=== PATIENT | female | born 1955 | race African-American/Black ===

== ENCOUNTER 2018-04-25 07:40 | Day surgery (SDC) | payer OTHER ==
--- OUTSIDE RECORDS SUMMARY | 2018-04-25 07:43 | XMS REPORT ---
:1955 [facility] Address [address] [place] [address] [address] Care Team Providers Name Role Phone HARISH MARCOS JR Primary Care Provider Unavailable Problems This patient has no known problems. Allergies, Adverse Reactions, Alerts This patient has no known allergies or adverse reactions. Medications This patient has no known medications. Encounters Start End Encounter Admission Attending Care Care Encounter Date/Time Date/Time Type Type Clinicians Facility Department ID 2018-01-17 2018-01-17 Outpatient [facility] [id number] 13:19:00 13:19:00 2017-10-18 2017-10-18 Outpatient [facility] [id number] 16:05:00 16:05:00
[2018-04-25] MEDS ORDERED: EPINEPHRINE/PF 1 MG/ML AMP ONE ×2 (07:54→09:08)
[2018-04-25] MEDS ORDERED: BALANCED SALT IRRIG PLAIN 500 ML BTL IRR ONE (07:54)
[2018-04-25] MEDS ORDERED: NS 0.9% VIAL 10 ML ONE (07:54)
[2018-04-25] MEDS ORDERED: MOXIFLOXACIN HCL 10 DROPS/ML **OR USE OPTH ONE (07:55)
[2018-04-25] MEDS ORDERED: CYCLOPENTOLATE 1% OPTH 2 ML ONE (07:55)
[2018-04-25] MEDS ORDERED: DUOVISC 1 KIT OPTH ONE (07:55)
[2018-04-25] MEDS ORDERED: LIDOCAINE 2% MPF 5 ML VIAL ONE ×2 (07:55→08:46)
[2018-04-25] MEDS ORDERED: TETRACAINE HCL 0.5% 2ML OPTH ONE (07:55)
[2018-04-25] MEDS ORDERED: NA CHLORIDE 0.9% 500 ML ONE (07:56)
[2018-04-25] MEDS ORDERED: PHENYLEPHRINE 10% OPTH 5ML ONE (07:56)
[2018-04-25] MEDS ORDERED: BUPIVACAINE 0.25% PF 30 ML VIAL ONE (07:59)
[2018-04-25] MEDS ORDERED: CYCLOPENTOLATE 1% OPTH 2 ML OPTH ONE ×2 (08:10→08:15)
[2018-04-25] MEDS ORDERED: PHENYLEPHRINE 10% OPTH 5ML OPTH ONE ×2 (08:10→08:15)
[2018-04-25] MEDS ORDERED: PROPOFOL 200 MG/20 ML VIAL IV ONE (08:46)
--- NOTE | 2018-04-25 09:54 | P.BOP ---
Preoperative diagnosis: Nuclear sclerotic, cortical and posterior subcapsular cataract OD Postoperative diagnosis: Same Primary procedure: Phacoemulsification with IOL OD Estimated blood loss: None Anesthesia: Local (Subtenon's infusion with anesthesia for cataract surgery) Complications: None Implants: SN60WF +20.5 Transferred to: Other (Day surgery) Condition: Good
--- NOTE | 2018-04-25 20:51 | OP ---
Date of Procedure: 04/25/2018 Surgeon: Sujey Soriano MD Anesthesiologist: Jose Elias Hart CRNA. Preoperative Diagnosis: Nuclear sclerotic cortical and posterior subcapsular cataract, right eye. Operation Performed: Phacoemulsification with intraocular lens implant, right eye. Anesthesia: Per cataract surgery. Complications: None. Description Of Procedure: In day surgery, the patient was prepped with Betadine and draped. A conjunctival incision was made in the inferior nasal quadrant with Kathy scissors. A sub-Tenon block consisting of a 1:1 mixture of 2% Xylocaine and 0.25% bupivacaine was placed through the conjunctival incision with a blunt cannula. A Honan balloon was placed over the eye and the patient was transferred to the operating room. In the operating room the patient was prepped and draped in the usual sterile fashion for ophthalmic surgery. A lid speculum was placed in the right eye. Two paracentesis sites were made superiorly and inferiorly in the limbal cornea. Viscoat was placed in the anterior chamber and a crescent blade was used to make a corneal groove and tunnel, and a keratome was used to enter the anterior chamber. Provisc was placed in the anterior chamber and a 360 degree capsulotomy was performed with a cystitome. The lens was hydrodissected with BSS and rotated freely. The lens was removed with a stop and chop technique. 7.25 phaco CDE was used to remove the lens. Residual cortex was removed with the irrigation and aspiration. Provisc was placed in the capsular bag. A SN60WF +20.5 diopter lens was placed in the capsular bag without complications. Irrigation and aspiration was used to remove residual viscoelastic. The paracentesis sites were hydrated with BSS. The wound and paracentesis sites were inspected and found to be watertight. Vigamox 0.07 cc was placed intracamerally at the end of the procedure. The eye was irrigated with balanced salt solution. The eye was patched with a soft cotton patch and Torres metal shield. The patient was returned to day surgery in good condition. Comments: A 1:5000 epinephrine was placed in the anterior chamber prior to Viscoat. Discharge Instructions: Ms. Kemp is discharged to home in good condition and is to follow up with Dr. Soriano in the morning. UMANG/ANH Voice ID: [id number] Report ID: [id number] MTDD
== END 2018-04-25 10:30 | disposition home or self-care (01) ==
LOC: OR 07:40
PROVIDERS: ATTEND Ophthalmology Retina Specialist
PROC: 08RJ3JZ Replacement of Right Lens with Synthetic Substitute, Percutaneous Approach (ICD-10-PCS; principal; 2018-04-25 09:00)
DX: H25.11 Age-related nuclear cataract, right eye (principal); H25.011 Cortical age-related cataract, right eye; H25.041 Posterior subcapsular polar age-related cataract, right eye; I10 Essential (primary) hypertension; E07.9 Disorder of thyroid, unspecified; J45.909 Unspecified asthma, uncomplicated; K21.9 Gastro-esophageal reflux disease without esophagitis; Z79.82 Long term (current) use of aspirin; Z83.518 Family history of other specified eye disorder; Z82.3 Family history of stroke; Z82.49 Family history of ischemic heart disease and other diseases of the circulatory system
CPT/HCPCS: J0171; V2630

== ENCOUNTER 2021-02-22 19:07 | Emergency (ER) | payer OTHER, BC ==
--- OUTSIDE RECORDS SUMMARY | 2021-02-22 19:10 | XMS REPORT | Continuity of Care Document ---
:1955 Author Organization [facility] Address [address] [place] [address] Care Team Providers Name Role Phone PRITI JR Primary Care Physician Unavailable Priti Attending Clinician Unavailable [place] Attending Clinician Unavailable [place] Admitting Clinician Unavailable Problems This patient has no known problems. Allergies, Adverse Reactions, Alerts This patient has no known allergies or adverse reactions. Medications This patient has no known medications. Procedures This patient has no known procedures. Encounters Start End Encounter Admission Attending Care Care Encounter Source Date/Time Date/Time Type Type Clinicians Facility Department ID 2020-08-05 2020-08-05 Outpatient Priti [facility] [id number] St. 10:08:00 23:59:00 Priti [facility] 2018-01-17 2018-01-17 Outpatient [facility] [id number] 13:19:00 13:19:00 [facility] 2017-10-18 2017-10-18 Outpatient [facility] [id number] 16:05:00 16:05:00 [facility] Results Test Description Test Time Test Comments Results Result [facility] e Comments XR Chest 1 View 2018-09-19 Patient: Charley MCALLISTER 17:15:17 JEAN-PAUL Date/Time09/19/2018 17:08 CSTReason for ExamCHF (Congestive Heart Failure), knownReportLocation: [id number], FRONTAL VIEWHISTORY: CHF (Congestive Heart Failure), knownCOMPARISON: None.FINDINGS:The lungs are clear without consolidation. No pleural effusion or pneumothorax. The heart size is normal. Mild lower thoracic spine degenerative changes. Several wires overlie the chest.IMPRESSION:No evidence of acute cardiopulmonary disease. Final Dictated by: MD Jacobs SankamanDictjared DT/TM: 09/19/2018 5:14 pmSigned by: MD Jacobs SankamanSigned (Electronic Signature): 09/19/2018 5:[address] Brain/Head w/o 2018-09-19 Patient: Job MCALLISTER 17:02:39 JEAN-PAUL Date/Time09/19/2018 16:55 CSTReason for ExamDizzinessReportEXAM : CT BRAIN WITHOUT CONTRASTINDICATION: DizzinessCOMPARISON: None availableTECHNIQUE: Routine axial noncontrast CT images of the brain were obtained.IV contrast: None.DLP: 718.2 mGy-cmFINDINGS:No intra-axial or extra-axial fluid collections are identified. No acute hemorrhage.There is normal differentiation of the zapata and white matter. The ventricles and sulci are normal in size and shape with no midline shift or mass effect. The basal cisterns are patent. The posterior fossa and fourth ventricle are normal.The paranasal sinuses and mastoid air cells are clear. No calvarial lesions. Skull base is intact. Orbits and globes are unremarkable.IMPRESSION :No acute intracranial abnormality. No intracranial hemorrhage.LOCATION: [id number] CT exam was performed according to our departmental dose optimization program, which includes automated exposure control, adjustment of the mA and/or kV according to the patient size and/or use of iterative reconstructive technique. Final Dictated by: MD Carter Melanie CDictated DT/TM: 09/19/2018 5:02 pmSigned by: MD Carter Melanie CSigned (Electronic Signature): 09/19/2018 5:02 pm
--- NOTE | 2021-02-22 20:36 | ER ---
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 Lac on R dorsum of foot. Bleeding controlled. Coronavirus screen: Client denies travel out of the [place] in the last 14 days. At this time, the client does not indicate any symptoms associated with coronavirus-19. Ebola Screen: Patient negative for fever greater than or equal to 101.5 degrees Fahrenheit, and additional compatible Ebola Virus Disease symptoms Patient denies exposure to infectious person. Patient denies travel to an Ebola-affected area in the 21 days before illness onset. No symptoms or risks identified at this time. Initial Sepsis Screen: Does the patient meet any 2 criteria? No. Patient's initial sepsis screen is negative. Does the patient have a suspected source of infection? No. Patient's initial sepsis screen is negative. Risk Assessment: Do you want to hurt yourself or someone else? Patient reports no desire to harm self or others. Onset of symptoms was February 22, 2021. 19:51 Method Of Arrival: Wheelchair ca1 19:51 Acuity: PATEL 4 ca1 Triage Assessment: 20:15 Injury Description: Laceration sustained to dorsum of right foot and right foot is rr5 clean, 0.5 to 2.5 cm long, bleeding moderately. 20:15 General: Appears comfortable, Behavior is calm, cooperative, appropriate for age. rr5 Historical: - Allergies: 19:55 No Known Allergies; ca1 - PMHx: 19:55 Hypertension; Angina; Thyroid problem; ca1 - PSHx: 19:55 Hysterectomy; Knee surgery; cataracts; ca1 - Immunization history:: Client reports receiving the 2nd dose of the Covid vaccine, Client reports receiving the 1st dose of the Covid vaccine, . - Social history:: Smoking status: Patient denies any tobacco usage or history of. Screenin:15 Abuse screen: Denies threats or abuse. Denies injuries from another. Nutritional rr5 screening: No deficits noted. Tuberculosis screening: No symptoms or risk factors identified. Fall Risk None identified. Total Staley Fall Scale indicates No Risk (0-24 pts). Assessment: 20:15 General: Appears in no apparent distress. comfortable, Behavior is calm, cooperative, rr5 appropriate for age. Pain: Complains of pain in right foot and dorsum of right foot. 20:15 Neuro: Level of Consciousness is awake, alert, obeys commands, Oriented to person, rr5 place, time. Cardiovascular: Capillary refill < 3 seconds Patient's skin is warm and dry. Respiratory: Airway is patent Respiratory effort is even, unlabored, Respiratory pattern is regular, symmetrical. GI: No signs and/or symptoms were reported involving the gastrointestinal system. : No signs and/or symptoms were reported regarding the genitourinary system. EENT: No signs and/or symptoms were reported regarding the EENT system. Derm: Skin temperature is warm Wound noted dorsum of right foot and right foot Wound is lacerated wound. Musculoskeletal: Capillary refill < 3 seconds. 20:35 Reassessment: with verbal order of wound cleaning, apply surgical to affected area and rr5 pressure dressing. 20:45 Reassessment: Patient appears in no apparent distress at this time. Patient is alert, rr5 oriented x 3, equal unlabored respirations, skin warm/dry/pink. discharge instruction given and explained without complaints made. Vital Signs: 19:51 BP 117 / 73; Pulse 82; Resp 16 S; Temp 97; Pulse Ox 99% on R/A; Weight 79.38 kg (R); ca1 Height 5 ft. 6 in. (167.64 cm) (R); Pain 8/10; 20:45 BP 131 / 75; Pulse 75; Resp 16; Pulse Ox 98% ; rr5 19:51 Body Mass Index 28.25 (79.38 kg, 167.64 cm) ca1 ED Course: 19:10 Patient arrived in ED. bp1 19:54 Triage completed. ca1 19:55 Arm band placed on right wrist. ca1 20:04 Caitlin Fischer FNP-C is [facility]. kb 20:04 Jaydon Higgins MD is Attending Physician. kb 20:15 Devin Ulloa RN is Primary Nurse. rr5 20:15 Patient has correct armband on for positive identification. Call light in reach. rr5 20:27 Foot Right 3 View XRAY In Process Unspecified. EDMS 20:30 Wound care: to laceration located on right foot and dorsum of right foot was cleaned rr5 with Hibiclens, dressed with 4X4s, surgicel, Patient tolerated well. 20:45 No provider procedures requiring assistance completed. Patient did not have IV access rr5 during this emergency room visit. Administered Medications: 20:40 Drug: Tetanus-Diphtheria Toxoid Adult 0.5 ml {Wiring Mechanic: [employer]. Exp: rr5 02/27/2022. Lot #: [id number]. } Route: IM; Site: left deltoid; 20:44 Follow up: Response: Medication administered at discharge. rr5 Outcome: 20:35 Discharge ordered by . kb 20:45 Discharged to home ambulatory, with family. rr5 20:45 Condition: stable 20:45 Discharge instructions given to patient, family, Instructed on discharge instructions, follow up and referral plans. Demonstrated understanding of instructions, follow-up care. 20:45 Patient left the ED. rr5 Signatures: Dispatcher [employer] EDMS Caitlin Fischer, STRIP TANK TENDER-C STRIP TANK TENDER-CkDevin Parker RN RN rr5 Iliana Man RN RN ca1 Beverly Sánchez bp1 Corrections: (The following items were deleted from the chart) 19:55 19:51 BP 117 / 73; Pulse 16bpm; Resp 16bpm; Spontaneous; Pulse Ox 99% RA; Temp 97F; ca1 79.38 kg Reported; Height 5 ft. 6 in. Reported; BMI: 28.2; Pain 8/10; ca1
--- NOTE | 2021-02-22 20:37 | EDPHYS ---
Physician Documentation [facility] Name: Lindsay Kemp Age: 65 yrs Sex: Female : 1955 Arrival Date: 02/22/2021 Time: 19:10 Bed 14 Private MD: ED Physician Jaydon Higgins HPI: 02/22 20:39 This 65 yrs old Black Female presents to ER via Wheelchair with complaints of Foot kb Injury, Laceration To Foot. 20:36 The patient has not recently seen a physician. kb 20:39 The patient presents with a contusion, a laceration, 0.5 cm(s), clean, pain. The kb complaints affect the right foot. Context: The problem was sustained at home, resulted from accidentally dropped glass, the patient can fully bear weight, the patient is able to ambulate. Onset: The symptoms/episode began/occurred just prior to arrival. Modifying factors: The symptoms are alleviated by nothing, the symptoms are aggravated by nothing. Associated signs and symptoms: The patient has no apparent associated signs or symptoms. Severity of symptoms: At their worst the symptoms were mild, in the emergency department the symptoms are unchanged. The patient has not experienced similar symptoms in the past. 20:40 Pt reports she accidentally dropped something made of glass and it broke cutting the kb top of her foot. Small, well approximated laceration noted to dorsum of right foot. Pt reports she was unable to get the bleeding to stop.. Historical: - Allergies: 19:55 No Known Allergies; ca1 - PMHx: 19:55 Hypertension; Angina; Thyroid problem; ca1 - PSHx: 19:55 Hysterectomy; Knee surgery; cataracts; ca1 - Immunization history:: Client reports receiving the 2nd dose of the Covid vaccine, Client reports receiving the 1st dose of the Covid vaccine, . - Social history:: Smoking status: Patient denies any tobacco usage or history of. ROS: 20:27 Constitutional: Negative for fever, chills, and weight loss, Respiratory: Negative for kb shortness of breath, cough, wheezing, and pleuritic chest pain, MS/Extremity: Negative for injury and deformity, Neuro: Negative for headache, weakness, numbness, tingling, and seizure. 20:27 Skin: Positive for laceration(s), of the dorsum of right foot. Exam: 20:27 Constitutional: This is a well developed, well nourished patient who is awake, alert, kb and in no acute distress. Head/Face: Normocephalic, atraumatic. Respiratory: Respirations even and unlabored. No increased work of breathing, no retractions or nasal flaring. MS/ Extremity: Pulses equal, no cyanosis. Neurovascular intact. Full, normal range of motion. Neuro: Awake and alert, GCS 15, oriented to person, place, time, and situation. Moves all extremities. Normal gait. 20:27 Skin: injury, contusion(s), that are superficial, of the dorsum of right foot, laceration(s), the wound is approximately 0.5 cm(s), of the dorsum of right foot, that can be described as clean, no foreign body, linear, with mild bleeding. Vital Signs: 19:51 BP 117 / 73; Pulse 82; Resp 16 S; Temp 97; Pulse Ox 99% on R/A; Weight 79.38 kg (R); ca1 Height 5 ft. 6 in. (167.64 cm) (R); Pain 8/10; 20:45 BP 131 / 75; Pulse 75; Resp 16; Pulse Ox 98% ; rr5 19:51 Body Mass Index 28.25 (79.38 kg, 167.64 cm) ca1 MDM: 20:17 Patient medically screened. kb 20:27 Data reviewed: vital signs, nurses notes. Data interpreted: Pulse oximetry: on room air kb is 99 %. Interpretation: normal. Counseling: I had a detailed discussion with the patient and/or guardian regarding: the historical points, exam findings, and any diagnostic results supporting the discharge/admit diagnosis, radiology results, the need for outpatient follow up, a family practitioner, to return to the emergency department if symptoms worsen or persist or if there are any questions or concerns that arise at home. 20:40 ED course: Pressure applied for approximately 2 minutes and bleeding resolved. . kb 02/22 20:04 Order name: Foot Right 3 View XRAY kb Administered Medications: 20:40 Drug: Tetanus-Diphtheria Toxoid Adult 0.5 ml {Reporting Coordinator: [employer]. Exp: rr5 02/27/2022. Lot #: [id number]. } Route: IM; Site: left deltoid; 20:44 Follow up: Response: Medication administered at discharge. rr5 Disposition: 02/23 04:25 Co-signature as Attending Physician, Jaydon Higgisn MD. mh7 Disposition: 02/22/21 20:35 Discharged to Home. Impression: Laceration without foreign body of foot. - Condition is Stable. - Discharge Instructions: Nonsutured Laceration Care, Contusion, [id number]. - Medication Reconciliation Form, Thank You Letter, Antibiotic Education, Prescription Opioid Use form. - Follow up: Emergency Department; When: As needed; Reason: Worsening of condition. Follow up: Private Physician; When: 2 - 3 days; Reason: Recheck today's complaints, Continuance of care, Re-evaluation by your physician. Signatures: Dispatcher [employer] EDCaitlin Davila, JUVENCIO-Rubens INSOLE TAPER-Devin Ku RN RN rr5 Iliana Man RN RN ca1 Jaydon Higgins MD MD 7 Corrections: (The following items were deleted from the chart) 02/22 20:45 20:35 02/22/2021 20:35 Discharged to Home. Impression: Laceration without foreign body rr5 of foot. Condition is Stable. Discharge Instructions: Nonsutured Laceration Care, Contusion, [id number]. Forms are Medication Reconciliation Form, Thank You Letter, Antibiotic Education, Prescription Opioid Use. Follow up: Emergency Department; When: As needed; Reason: Worsening of condition. Follow up: Private Physician; When: 2 - 3 days; Reason: Recheck today's complaints, Continuance of care, Re-evaluation by your physician. kb
[2021-02-22 20:49] VITALS: BP 117/73; TEMP 97; O2SAT 99
[2021-02-22] MEDS ORDERED: TETANUS & DIPHTHERIA TOX,ADULT 0.5 ML VIAL ONE (20:55)
--- NOTE | 2021-02-22 21:10 | RAD REPORT ---
EXAM DESCRIPTION: RAD - Foot Right 3 View - 02/22/2021 8:27 pm CLINICAL HISTORY: PAIN, laceration to the dorsum of the foot anterior to the tibiotalar joint line COMPARISON: No comparisonsselect FINDINGS: No fracture, dislocation or periosteal reaction. No acute bone or joint abnormality. No foreign body seen at the laceration site nor elsewhere in the foot. IMPRESSION: No foreign body. No bone or joint abnormality.
== END 2021-02-22 20:45 | disposition home or self-care (01) ==
LOC: ER 19:07
DX: S91.311A Laceration without foreign body, right foot, initial encounter (principal); W25.XXXA Contact with sharp glass, initial encounter; Y92.009 Unspecified place in unspecified non-institutional (private) residence as the place of occurrence of the external cause; I10 Essential (primary) hypertension; Z23 Encounter for immunization; E07.9 Disorder of thyroid, unspecified
CPT/HCPCS: 90471; 90714; 99283

== ENCOUNTER 2023-12-02 06:26 | Day surgery (SDC) | payer OTHER ==
--- NOTE | 2023-11-24 16:05 | RAD REPORT ---
EXAM DESCRIPTION: RAD - Chest Pa And Lat (2 Views) - 11/24/2023 3:58 pm CLINICAL HISTORY: pdre op for day surgery Chest pain. COMPARISON: <Comparisons> FINDINGS: The lungs are clear. The heart is normal in size. No displaced fractures. IMPRESSION: No acute or concerning finding suspected. The USPSTF recommends annual screening for lung cancer with low-dose CT (LDCT) in adults aged 50 to 80 years who have a 20 pack-year smoking history and currently smoke or have quit within the past 15 years.
--- NOTE | 2023-11-29 17:12 | EKG ---
Test Date: 2023-11-24 Test Time: 16:38:21 Veterinary Manager: KIRK MEASUREMENT RESULTS: Intervals: Rate: 73 NV: 140 QRSD: 70 QT: 378 QTc: 416 [place]: P: 62 NV: 140 QRS: 70 T: 64 INTERPRETIVE STATEMENTS: Normal sinus rhythm Normal ECG No previous ECG available for comparison Electronically Signed On 11-29-23 16:57:35 MOLASSES AND CARAMEL OPERATOR by Chad Higgins
[2023-12-02] MEDS ORDERED: SCOPOLAMINE HYDROBROMIDE PATCH TD ONE (06:47)
[2023-12-02] MEDS ORDERED: Ringers Lactate 1,000 ML IV ONE (06:47)
[2023-12-02] MEDS ORDERED: dexAMETHasone 4 MG/ML VIAL ONE (07:33)
[2023-12-02] MEDS ORDERED: LIDOCAINE 1% MPF 5 ML VIAL ONE (07:33)
[2023-12-02] MEDS ORDERED: propofoL 200 MG/20 ML VIAL IV ONE (07:33)
[2023-12-02] MEDS ORDERED: ONDANSETRON 4 MG/2 ML VIAL ONE (07:33)
[2023-12-02] MEDS ORDERED: ROCURONIUM 50 MG/5 ML VIAL IV ONE (07:33)
[2023-12-02] MEDS ORDERED: FENTANYL CITR 100 MCG/2 ML ONE (07:34)
[2023-12-02] MEDS ORDERED: MIDAZOLAM HCL 2 MG/2 ML INJ ONE (07:35)
[2023-12-02] MEDS: CEFAZOLIN SODIUM 2 GM/VIAL ONE ×2 (07:56→08:14)
[2023-12-02] MEDS: LIDOCAINE HCL/EPINEPHRINE 20 ML MDV ONE ×3 (07:56→08:48)
[2023-12-02] MEDS ORDERED: Phenylephrine HCl 10 MG/ML 1 ML VIAL ONE ×2 (08:52→08:53)
[2023-12-02] MEDS ORDERED: LIDOCAINE HCL/EPINEPHRINE 20 ML MDV ONE (08:54)
[2023-12-02] MEDS ORDERED: BUPIVACAINE 0.25% PF 30 ML VIAL ONE (08:54)
[2023-12-02] MEDS ORDERED: EPHEDRINE SULF 50 MG/ML VIAL ONE (09:27)
[2023-12-02] MEDS ORDERED: HOME MED 1 EA UNK (Albuterol Sulfate [Proair Digihaler] 90 MCG Aer.Pw.Bas) IH PRN (10:07)
[2023-12-02] MEDS ORDERED: HYDROCODONE/APAP 5/325 MG TAB PO PRN (10:08)
--- NOTE | 2023-12-02 10:11 | P.BOP ---
Preoperative diagnosis: UUI, mixed uncontinence Postoperative diagnosis: same Primary procedure: Stage 1 and 2 Interstim Estimated blood loss: min Specimen: none Findings: left S3 adn left buttock, leads with all good responses, lead 0 light toe Anesthesia: General Complications: None Implants: lead adn Interstim neurostimulator Transferred to: Recovery Room Condition: Good
--- NOTE | 2023-12-02 11:12 | RAD REPORT ---
EXAM DESCRIPTION: RAD - Fluoroscopy <1 Hour - 12/02/2023 11:00 am CLINICAL HISTORY: SACRAL NEURO MOD. COMPARISON: None available. FINDINGS: Twenty-four Images were sent to PACS, documenting fluoroscopy utilization during sacral ne ural modulator placement. No radiologist was available for the procedure, nor will any image interpre tation he provided. Please refer to the procedural report for additional details. Fluoroscopy time: 1.6 Minutes. IMPRESSION: Documentation of fluoroscopy utilization as above.
[2023-12-02] MEDS ORDERED: ONDANSETRON 4 MG (ODT) TAB ONE (11:41)
[2023-12-02 12:29] VITALS: BP 112/62; TEMP 97; O2SAT 99
[2023-12-02] MEDS ORDERED: HYOSCYAMINE SULFATE 0.125 MG SL SCH (13:00)
[2023-12-02] MEDS ORDERED: HOME MED 1 EA UNK (Benzonatate [Benzonatate] 200 MG Capsule) PO SCH (14:00)
[2023-12-02] MEDS ORDERED: CEFDINIR 300 MG CAP PO SCH (21:00)
[2023-12-03] MEDS ORDERED: HOME MED 1 EA UNK (Losartan Potassium [Losartan Potassium] 25 MG Tablet) PO SCH (09:00)
[2023-12-03] MEDS ORDERED: HOME MED 1 EA UNK (Vitamin B Complex [B Complex] Tablet) PO SCH (09:00)
[2023-12-03] MEDS ORDERED: DRISDOL (VITAMIN D=ERGOCALCIFEROL) 50000 UNIT CAP PO SCH (09:00)
[2023-12-03] MEDS ORDERED: FAMOTIDINE 20 MG TAB PO SCH (09:00)
[2023-12-03] MEDS ORDERED: HOME MED 1 EA UNK (Cetirizine Hcl [Zyrtec] 10 MG Capsule) PO SCH (09:00)
[2023-12-03] MEDS ORDERED: SIMETHICONE PO SCH (09:00)
[2023-12-03] MEDS ORDERED: LEVOTHYROXINE SOD 0.125 MG TAB PO SCH (09:00)
[2023-12-03] MEDS ORDERED: ZINC GLUCONATE 30 MG PO SCH (09:00)
[2023-12-03] MEDS ORDERED: HOME MED 1 EA UNK (Estradiol [Estradiol] 42.5 GM Cream.Appl) VG SCH (17:00)
== END 2023-12-02 11:50 | disposition home or self-care (01) ==
LOC: OR 06:26
PROVIDERS: ATTEND Obstetrics & Gynecology
PROC: 0JH73BZ Insertion of Single Array Stimulator Generator into Back Subcutaneous Tissue and Fascia, Percutaneous Approach (ICD-10-PCS; 2023-12-02)
PROC: 01HY3MZ Insertion of Neurostimulator Lead into Peripheral Nerve, Percutaneous Approach (ICD-10-PCS; principal; 2023-12-02 07:30)
DX: N39.46 Mixed incontinence (principal); N81.84 Pelvic muscle wasting; I10 Essential (primary) hypertension; E03.9 Hypothyroidism, unspecified
CPT/HCPCS: 93005; 71046; 76000; 64561; 64590; Q0162; J2704; J1100; J2001; J2371 ×2; J2250; J3010; J2405; J7120; C1778; C1767